=== PATIENT | male | born 1975 | race Caucasian/White ===

== ENCOUNTER 2022-01-31 00:49 | Emergency (ER) | payer MEDICAID, SELFPAY ==
--- NOTE | ~2022-01-31 | XR_ITS ---
EXAMINATION: [id number] DATE: 01/31/2022 03:11 INDICATION: Right chest pain. TECHNIQUE: A frontal view of the chest and 2 views on 3 radiographs of the right ribs were obtained. COMPARISON: None. FINDINGS: There is mild atelectasis in the lower lung zones. No pleural effusion or pneumothorax. The heart size is normal. IMPRESSION: 1. No rib fracture. Reviewed, dictated and finalized at location A. IMPRESSION: 1. No rib fracture.
[2022-01-31 00:50] VITALS: BP 141/108; PULSE 107; RESP 30; TEMP 36.7; O2SAT 100
[2022-01-31] MEDS: KETOROLAC 30 MG/ML VIAL (*BKC) IV PUSH (02:45)
[2022-01-31] MEDS: HYDROmorphone HCL INJ (*CRX) 1 MG/ML SYR IV PUSH (02:46)
--- NOTE | 2022-01-31 03:40 | ED.BACK ---
HPI - Back Pain/Injury General Chief Complaint: Back Pain/Injury Stated Complaint: BACK SIDE PAIN Time Seen by Provider: 01/31/22 02:04 Source: patient and RN notes reviewed Mode of arrival: EMS Limitations: no limitations History of Present Illness HPI Narrative: This is a 46 year old male smoker who presents for evaluation of right posterior rib pain. He states that he accidentally slipped on Friday. He fell onto his back and he had been having some right posterior rib pain. His pain was tolerable so he did not get evaluation. Tonight he was rolling over in bed and he felt pop to right posterior rib. He is having severe burning pain and shortness of breath due to the pain. He denies headache or LOC from fall. Denies taking anticoagulation. He was given fentanyl in route to ER by EMS. Related Data Allergies Allergy/AdvReac Type Severity Reaction Status Date / Time No Known Allergies Allergy Verified 01/31/22 02:45 Review of Systems Review of Systems: All systems reviewed & are unremarkable except as noted in HPI and below Constitutional: Constitutional: Denies chills, Denies fatigue and Denies fever(s) ENT: Denies nasal congestion Cardiovascular: Cardiovascular: Denies chest pain and Denies radiating jaw, neck or arm pain Respiratory: Respiratory: Reports dyspnea Gastrointestinal: Gastrointestinal: Denies abdominal pain, Denies bloating, Denies nausea and Denies vomiting PMFSH Past Medical History Medical History (Updated 01/31/22 @ 04:03 by Ethel Rivera MD) Patient denies medical problems Surgical History Surgical History (Updated 01/31/22 @ 03:43 by Ethel Rivera MD) No pertinent past surgical history Social History Social History (Updated 01/31/22 @ 03:43 by Ethel Rivera MD) Smoking packs per day: 1 Smoking cigarettes per day: 20.0 Smoking status: Current every day smoker Exam Const: General: no acute distress and alert Nutritional Appearance: well nourished Orientation/consciousness: patient oriented x3 HENMT: Head: normal to inspection Eyes: EOM: EOMs intact bilaterally Neck: Neck: normal visual inspection Chest: Chest palpation & inspection: tenderness (focal tenderness right lateral mid rib, no bruising, no swelling) Resp: Effort & Inspection: normal respiratory effort Auscultation: clear to auscultation bilaterally Cardio: Rate: regular rate Rhythm: regular rhythm Heart sounds: no murmurs GI: GI Palp: Yes Soft to palpation, No Tenderness to palpation present (GI) and No Guarding due to palpation present (GI) Auscultation: normal bowel sounds Back/Spine/Pelvis: Back: no CVA tenderness Skin: General skin exam: normal color Rashes: no rashes Wounds: no wounds Neuro: General: patient oriented x3, moves all extremities and CN's II-XI intact bilaterally Speech: normal speech Extrem: General: normal to inspection Psych: Mental Status: mental status grossly normal Affect: normal affect Attitude: cooperative Course Reevaluation(s) Reevaluation #1: I have discussed with patient that xray does show broken rib. He appears comfortable. I Discussed discharge plan. Date: 01/31/22 Time: 04:01 Vital Signs Vital signs: Vital Signs Temperature 98.0 F 01/31/22 00:50 Pulse Rate 107 H 01/31/22 00:50 Respiratory Rate 30 H 01/31/22 00:50 Blood Pressure 141/108 H 01/31/22 00:50 Pulse Oximetry 100 01/31/22 00:50 Oxygen Delivery Room Air 01/31/22 00:50 Temperature 98.0 F 01/31/22 00:50 Pulse Rate 107 H 01/31/22 00:50 Respiratory Rate 30 H 01/31/22 00:50 Blood Pressure 141/108 H 01/31/22 00:50 Pulse Oximetry 100 01/31/22 00:50 Oxygen Delivery Room Air 01/31/22 00:55 MDM - Back Pain/Injury Imaging Data Attestation: I personally reviewed and interpreted this imaging study as follows: My impression: right rib series- rib fracture present on right, no pneumothorax Discharge Plan Discharge Clinic
== END 2022-01-31 04:34 | disposition home or self-care (01) ==
PROVIDERS: Emergency Provider General Practice
DX: S22.31XA Fracture of one rib, right side, initial encounter for closed fracture (principal); F17.210 Nicotine dependence, cigarettes, uncomplicated; W01.0XXA Fall on same level from slipping, tripping and stumbling without subsequent striking against object, initial encounter
CPT/HCPCS: 71101; 96374; 96375; 99284; J1170; J1885